=== PATIENT | female | born 1980 | race Caucasian/White ===

== ENCOUNTER 2018-05-06 20:34 | Emergency (ER) | payer MEDICAID ==
[~2018-05-06] VITALS: Ht 160 cm; Wt 91.0 kg
[2018-05-06 20:51] VITALS: BP 131/85
== END 2018-05-06 23:18 | disposition left against medical advice (07) ==
LOC: ER 20:34
DX: R07.81 Pleurodynia (principal); Z53.21 Procedure and treatment not carried out due to patient leaving prior to being seen by health care provider

== ENCOUNTER 2018-05-18 11:45 | Emergency (ER) | payer MEDICAID ==
[~2018-05-18] VITALS: Ht 160 cm; Wt 90.1 kg
[2018-05-18 11:50] VITALS: BP 150/88
[2018-05-18] MEDS ORDERED: TRIA15CR61 TOP (12:18)
== END 2018-05-18 12:29 | disposition home or self-care (01) ==
LOC: ER 11:45
DX: S90.562A Insect bite (nonvenomous), left ankle, initial encounter (principal); Z79.899 Other long term (current) drug therapy; W57.XXXA Bitten or stung by nonvenomous insect and other nonvenomous arthropods, initial encounter; Y93.89 Activity, other specified; Y92.89 Other specified places as the place of occurrence of the external cause; Y99.8 Other external cause status
CPT/HCPCS: 99283

== ENCOUNTER 2018-06-05 17:20 | Emergency (ER) | payer MEDICAID ==
[~2018-06-05] VITALS: Ht 160 cm; Wt 85.0 kg
[~2018-06-05 17:20] MED LIST: TRIA15CR61 TOP
[2018-06-05 17:47] VITALS: BP 143/95
[2018-06-05] MEDS ORDERED: MUPI15CR TOP (17:51)
== END 2018-06-05 18:08 | disposition home or self-care (01) ==
LOC: ER 17:20
DX: L73.8 Other specified follicular disorders (principal); Z79.899 Other long term (current) drug therapy
CPT/HCPCS: 99283

== ENCOUNTER 2019-08-21 13:35 | Emergency (ER) | payer MEDICAID, OTHER ==
[~2019-08-21] VITALS: Ht 160 cm; Wt 86.4 kg
[~2019-08-21 13:35] MED LIST changes: +MUPI15CR TOP; -TRIA15CR61 TOP
--- NOTE | 2019-08-21 13:57 | NUR ---
PT REPORTS PARTNER FEMALE, DENIES BEING .
[2019-08-21 14:12] LABS: BASOPHILS % (AUTO) 0.4 % (0-1); EOSINOPHILS # (AUTO) 0.1 X10'3 (0-0.9); EOSINOPHILS % (AUTO) 0.7 % (0-6); HEMATOCRIT 44.2 % (35.0-45.0); HEMOGLOBIN 15.4 g/dl (12.0-16.0); LYMPHOCYTES # (AUTO) 2.4 X10'3 (1.1-4.8); LYMPHOCYTES % (AUTO) 26.6 % (21-51); MEAN CORPUSCULAR HEMOGLOBIN 31.2 PG (27.0-31.0); MEAN CORPUSCULAR HGB CONC 34.9 g/dL (33.0-36.5); MEAN CORPUSCULAR VOLUME 89.4 FL (78-98); MONOCYTES # (AUTO) 0.7 X10'3 (0-0.9); MONOCYTES % (AUTO) 7.9 % (2-12); NEUTROPHILS # (AUTO) 5.7 X10'3 (1.8-7.7); NEUTROPHILS % (AUTO) 64.4 % (42-75); PLATELET COUNT 254 X10'3 (140-440); RED BLOOD COUNT 4.95 X10'6 (4.20-5.60); RED CELL DISTRIBUTION WIDTH 13.4 % (11.5-14.5); WHITE BLOOD COUNT 8.9 X10'3 (4.5-11.0)
[2019-08-21 14:36] LABS: ALANINE AMINOTRANSFERASE 27 U/L (12-78); ALBUMIN 3.8 G/DL (3.4-5.0); ALBUMIN/GLOBULIN RATIO 1.1 (1.1-1.5); ALKALINE PHOSPHATASE 87 IU/L (46-116); ANION GAP 9 (8-16); ASPARTATE AMINO TRANSFERASE 18 U/L (10-37); BILIRUBIN,TOTAL 0.3 MG/DL (0.1-1.0); BLOOD UREA NITROGEN 9 MG/DL (7-18); BUN/CREATININE RATIO 10.7 (6.6-38.0); CALCIUM 8.9 MG/DL (8.5-10.1); CHLORIDE 106 MMOL/L (99-107); CREATININE 0.84 MG/DL (0.40-0.90); GLUCOSE 101 MG/DL (70-104); POTASSIUM 3.9 MMOL/L (3.5-5.1); SODIUM 140 MMOL/L (135-145); TOTAL CARBON DIOXIDE 25.3 MMOL/L (24-32); TOTAL PROTEIN 7.4 G/DL (6.4-8.2); eGFR 75 ML/MIN
[2019-08-21 15:32] LABS: LIPASE 203 U/L (73-393)
[2019-08-21 15:33] LABS: CLARITY,URINE CLOUDY (Clear); COLOR,URINE YELLOW (Yellow); GLUCOSE, URINE NEGATIVE (Neg); KETONES,URINE NEGATIVE (Neg); LEUKOCYTE ESTERASE ,URINE NEGATIVE (Neg); NITRITES, URINE NEGATIVE (Neg); OCCULT BLOOD,URINE NEGATIVE (Neg); PROTEIN,URINE NEGATIVE (Neg); UROBILINOGEN,URINE 0.2 E.U/dL (0.2-1.0)
[2019-08-21 15:37] LABS: UA COLLECTION TYPE CLN CATCH MIDSTREAM
[2019-08-21 15:39] LABS: BACTERIA,URINE 2+ /HPF (Neg); MUCUS STRANDS MODERATE /LPF (Neg); RBC,URINE 0-2 /HPF (0-2); SQUAMOUS EPITHELIAL CELL,UR MANY /LPF (FEW); WBC,URINE 0-4 /HPF (0-4)
[2019-08-21] MEDS ORDERED: ketorolac tromethamine 15mg/ml inj. IV ONE (17:00)
--- NOTE | 2019-08-21 17:15 | NUR ---
Katiana ESPINOZA PA GAVE VERBAL ORDER FOR TORADOL 15MG IM
[2019-08-21 17:20] VITALS: BP 138/88
--- NOTE | 2019-08-21 17:24 | NUR ---
CABLE TELEVISION ACCESS COORDINATOR AT BEDSIDE
[2019-08-21] MEDS ORDERED: IBUP-1984 PO (17:58)
== END 2019-08-21 18:49 | disposition home or self-care (01) ==
LOC: ER 13:36
DX: R10.11 Right upper quadrant pain (principal); F10.99 Alcohol use, unspecified with unspecified alcohol-induced disorder; Z86.69 Personal history of other diseases of the nervous system and sense organs; Z79.899 Other long term (current) drug therapy; Y90.9 Presence of alcohol in blood, level not specified
CPT/HCPCS: 36415; 76700; 80053; 81001; 83690; 85025; 85610; 96374; 99284; J1885

== ENCOUNTER 2021-10-21 11:14 | Emergency (ER) | payer BC ==
[~2021-10-21] VITALS: Ht 160 cm; Wt 90.9 kg
[2021-10-21 11:24] VITALS: BP 139/94
[2021-10-21] MEDS ORDERED: FLUC100T PO (11:50)
[2021-10-22] MEDS ORDERED: DIPH25CA83 PO (18:21)
== END 2021-10-21 12:27 | disposition home or self-care (01) ==
LOC: ER 11:14
DX: B35.8 Other dermatophytoses (principal)
CPT/HCPCS: 99283

== ENCOUNTER 2021-10-22 13:53 | Emergency (ER) | payer BC ==
[~2021-10-22] VITALS: Ht 160 cm; Wt 90.9 kg
[~2021-10-22 13:53] MED LIST changes: +FLUC100T PO
[2021-10-22 14:36] VITALS: BP 181/97
[2021-10-22] MEDS ORDERED: LORazepam 2 mg/ml vial IM ONE (14:45)
[2021-10-22] MEDS ORDERED: DIPH25CA83 PO (18:21)
== END 2021-10-22 18:20 | disposition home or self-care (01) ==
LOC: ER 13:54
DX: F41.9 Anxiety disorder, unspecified (principal); B35.9 Dermatophytosis, unspecified; Z79.899 Other long term (current) drug therapy
CPT/HCPCS: 96372; 99283; J2060

== ENCOUNTER 2021-10-24 12:01 | Emergency (ER) | payer BC ==
[~2021-10-24] VITALS: Ht 160 cm; Wt 88.0 kg
[~2021-10-24 12:01] MED LIST changes: +DIPH25CA83 PO
[2021-10-24 12:36] VITALS: BP 135/96
== END 2021-10-24 14:48 | disposition home or self-care (01) ==
LOC: ER 12:02
DX: Z02.89 Encounter for other administrative examinations (principal); B35.9 Dermatophytosis, unspecified; Z86.69 Personal history of other diseases of the nervous system and sense organs; Z72.89 Other problems related to lifestyle; Z79.2 Long term (current) use of antibiotics; Z79.899 Other long term (current) drug therapy
CPT/HCPCS: 99281

== ENCOUNTER 2021-10-25 21:19 | Emergency (ER) | payer BC ==
[~2021-10-25] VITALS: Ht 160 cm; Wt 90.0 kg
[2021-10-25 21:56] VITALS: BP 137/96
[2021-10-26] MEDS ORDERED: CLOT15CR10 TOP (01:47)
== END 2021-10-26 02:11 | disposition home or self-care (01) ==
LOC: ER 21:20
DX: L30.8 Other specified dermatitis (principal); Z86.69 Personal history of other diseases of the nervous system and sense organs; Z72.89 Other problems related to lifestyle; Z79.2 Long term (current) use of antibiotics; Z79.899 Other long term (current) drug therapy
CPT/HCPCS: 99282

== ENCOUNTER 2021-10-26 20:07 | Emergency (ER) | payer BC ==
[~2021-10-26] VITALS: Ht 160 cm; Wt 74.4 kg
[~2021-10-26 20:07] MED LIST changes: +CLOT15CR10 TOP
[2021-10-26 20:29] VITALS: BP 160/99
== END 2021-10-26 23:30 | disposition home or self-care (01) ==
LOC: ER 20:08
DX: R21 Rash and other nonspecific skin eruption (principal); Z86.69 Personal history of other diseases of the nervous system and sense organs; Z72.89 Other problems related to lifestyle; Z79.2 Long term (current) use of antibiotics; Z79.899 Other long term (current) drug therapy
CPT/HCPCS: 99281

== ENCOUNTER 2021-10-28 14:19 | Emergency (ER) | payer BC | END 2021-10-28 16:45 | disposition left against medical advice (07) | LOC: ER 14:20 | DX: Z53.21 Procedure and treatment not carried out due to patient leaving prior to being seen by health care provider (principal) ==

== ENCOUNTER 2021-11-01 06:20 | Emergency (ER) | payer BC ==
[~2021-11-01] VITALS: Ht 160 cm; Wt 86.0 kg
[2021-11-01 06:48] VITALS: BP 142/95
[2021-11-01] MEDS ORDERED: KEN0.1O TP (08:26)
== END 2021-11-01 08:35 | disposition home or self-care (01) ==
LOC: ER 06:20
DX: L30.9 Dermatitis, unspecified (principal); Z86.69 Personal history of other diseases of the nervous system and sense organs; Z72.89 Other problems related to lifestyle; Z79.2 Long term (current) use of antibiotics; Z79.899 Other long term (current) drug therapy
CPT/HCPCS: 99283

== ENCOUNTER 2021-11-03 15:14 | Emergency (ER) | payer BC ==
[~2021-11-03] VITALS: Ht 160 cm; Wt 90.0 kg
[~2021-11-03 15:14] MED LIST changes: -FLUC100T PO; +KEN0.1O TP
[2021-11-03 15:36] VITALS: BP 161/99
[2021-11-03] MEDS ORDERED: PRED20TA PO (16:33)
[2021-11-03] MEDS ORDERED: HYDR-3686 PO (16:33)
== END 2021-11-03 16:43 | disposition home or self-care (01) ==
LOC: ER 15:15
DX: R21 Rash and other nonspecific skin eruption (principal); Z86.69 Personal history of other diseases of the nervous system and sense organs; Z72.89 Other problems related to lifestyle; Z79.2 Long term (current) use of antibiotics; Z79.899 Other long term (current) drug therapy
CPT/HCPCS: 99283

== ENCOUNTER 2022-03-06 12:20 | Emergency (ER) | payer BC ==
[~2022-03-06] VITALS: Ht 160 cm; Wt 83.6 kg
[~2022-03-06 12:20] MED LIST changes: -KEN0.1O TP
[2022-03-06 12:43] VITALS: BP 160/103
[2022-03-06] MEDS ORDERED: CLOT15CR35 TOP (15:58)
[2022-03-06] MEDS ORDERED: CLOT15CR11 TOP (16:09)
== END 2022-03-06 16:19 | disposition home or self-care (01) ==
LOC: ER 12:21
DX: L24.9 Irritant contact dermatitis, unspecified cause (principal); Z72.89 Other problems related to lifestyle; Z79.899 Other long term (current) drug therapy; Z79.2 Long term (current) use of antibiotics
CPT/HCPCS: 99283

== ENCOUNTER 2023-07-13 02:21 | Emergency (ER) | payer SELFPAY ==
[~2023-07-13] VITALS: Ht 160 cm; Wt 90.9 kg
[~2023-07-13 02:21] MED LIST changes: +CLOT15CR11 TOP; +CLOT15CR35 TOP
[2023-07-13] MEDS ORDERED: acetaminophen 1,000mg/100ml IV 100 ML IV STA (02:26)
[2023-07-13] MEDS ORDERED: normal saline 1000ML IV soln IVB ONE (02:30)
--- NOTE | 2023-07-13 02:50 | NUR ---
DR JALLOH NOTIFIED THAT PT IS REFUSING TEST SHE IS CERTAIN SHE IS NOT . NO NEW ORDERS
[2023-07-13 03:06] LABS: ALANINE AMINOTRANSFERASE 19 U/L (12-78); ALBUMIN 3.5 G/DL (3.4-5.0); ALBUMIN/GLOBULIN RATIO 1.2 (1.1-1.5); ALKALINE PHOSPHATASE 86 IU/L (46-116); ANION GAP 9 (8-16); ASPARTATE AMINO TRANSFERASE 20 U/L (10-37); BILIRUBIN,TOTAL 0.2 MG/DL (0.1-1.0); BLOOD UREA NITROGEN 9 MG/DL (7-18); BUN/CREATININE RATIO 9.5 (10.0-20.0); CALCIUM 9.6 MG/DL (8.5-10.1); CHLORIDE 103 MMOL/L (99-107); CREATININE 0.95 MG/DL (0.40-0.90); GLUCOSE 148 MG/DL (70-104); POTASSIUM 3.4 MMOL/L (3.5-5.1); SODIUM 141 MMOL/L (135-145); TOTAL CARBON DIOXIDE 28.6 MMOL/L (24-32); TOTAL PROTEIN 6.4 G/DL (6.4-8.2); eCRCL 63 ML/MIN; eGFR 64 ML/MIN
[2023-07-13 03:25] LABS: BASOPHILS % (AUTO) 0.5 % (0-1); EOSINOPHILS # (AUTO) 0.1 X10'3 (0-0.9); EOSINOPHILS % (AUTO) 0.8 % (0-6); HEMATOCRIT 43.6 % (35.0-45.0); HEMOGLOBIN 15.1 g/dl (12.0-16.0); LYMPHOCYTES # (AUTO) 2.3 X10'3 (1.1-4.8); LYMPHOCYTES % (AUTO) 25.7 % (21-51); MEAN CORPUSCULAR HEMOGLOBIN 30.9 PG (27.0-31.0); MEAN CORPUSCULAR HGB CONC 34.5 g/dL (33.0-36.5); MEAN CORPUSCULAR VOLUME 89.5 FL (78-98); MEAN PLATELET VOLUME 7.8 FL (7.4-10.4); MONOCYTES # (AUTO) 0.6 X10'3 (0-0.9); MONOCYTES % (AUTO) 6.3 % (2-12); NEUTROPHILS # (AUTO) 5.9 X10'3 (1.8-7.7); NEUTROPHILS % (AUTO) 66.7 % (42-75); PLATELET COUNT 216 X10'3 (140-440); RED BLOOD COUNT 4.87 X10'6 (4.20-5.60); RED CELL DISTRIBUTION WIDTH 12.8 % (11.5-14.5); WHITE BLOOD COUNT 8.8 X10'3 (4.5-11.0)
[2023-07-13] MEDS ORDERED: ONDA4TAB12 PO (03:44)
[2023-07-13 04:10] VITALS: BP 135/75; PULSE 56; RESP 16; TEMP 97.9; O2SAT 94
== END 2023-07-13 04:13 | disposition home or self-care (01) ==
LOC: ER 02:22
DX: R51.9 Headache, unspecified (principal); Z79.899 Other long term (current) drug therapy
CPT/HCPCS: 36415; 70450; 80053; 85025; 96374; 99285; J0131; J7030

== ENCOUNTER 2025-02-22 13:51 | Emergency (ER) | payer MEDICAID ==
[~2025-02-22] VITALS: Ht 160 cm; Wt 78.8 kg
[~2025-02-22 13:51] MED LIST changes: +ONDA-243 PO
[2025-02-22 14:00] VITALS: BP 126/83; PULSE 77; RESP 18; TEMP 97.7; O2SAT 96
[2025-02-22] MEDS: triamcinolone acetonide 40mg/ml inj IM ONE (15:32)
== END 2025-02-22 15:50 | disposition home or self-care (01) ==
LOC: ER 13:51
DX: L50.9 Urticaria, unspecified (principal)
CPT/HCPCS: 96372; 99283; J3301

== ENCOUNTER 2025-02-28 08:24 | Emergency (ER) | payer MEDICAID ==
[~2025-02-28] VITALS: Ht 160 cm; Wt 78.1 kg
[2025-02-28 08:25] VITALS: BP 144/104; PULSE 71; RESP 18; TEMP 97.3; O2SAT 100
[2025-02-28] MEDS: predniSONE 20 mg tablet PO ONE (09:22)
[2025-02-28] MEDS ORDERED: PRED50TA PO (09:25)
== END 2025-02-28 09:34 | disposition home or self-care (01) ==
LOC: ER 08:24
DX: L23.7 Allergic contact dermatitis due to plants, except food (principal); F10.90 Alcohol use, unspecified, uncomplicated; Y90.9 Presence of alcohol in blood, level not specified
CPT/HCPCS: 99283; J7512